=== PATIENT | female | born 1935 | race Caucasian/White ===

== ENCOUNTER 2019-11-22 00:18 | Inpatient (IN) | payer MEDICARE, OTHER ==
[~2019-11-22] VITALS: Ht 162.6 cm; Wt 121.0 kg
[2019-11-22] MEDS ORDERED: ACETAMINOPHEN 325 MG TABLET PO ONE (01:00)
[2019-11-22] MEDS ORDERED: SODIUM CHLORIDE FLUSH 10ML SYR IVF ONE (01:00)
[2019-11-22] MEDS ORDERED: PROCHLORPERAZINE 5 MG/ML, 2ML IVPush ONE (01:00)
[2019-11-22] MEDS ORDERED: PROCHLORPERAZINE 5 MG/ML, 2ML ONE (01:17)
--- NOTE | 2019-11-22 01:20 | NUR ---
BREAK RN: PT MEDICATED PER EMAR. 5 RIGHTS ADDRESSED. PT C/O "FEELING COLD", SHIVERING. TEMP RECHECKED AT 100.9. WILL WAIT FOR COMPAZINE TO TAKE AFFECT FOR VOMITING PRIOR TO ADMINISTRATION OF TYLENOL
--- NOTE | 2019-11-22 01:30 | NUR ---
BREAK RN: URINE SAMPLE OBTAINED. PLACED IN TUBES, LABELED AND SENT TO LAB.
[2019-11-22 01:37] LABS: MEAN CORPUSCULAR HEMOGLOBIN 28.6 pg (27.0-34.8); MEAN CORPUSCULAR HGB CONC 33.2 g/dL (32.4-35.8); MEAN CORPUSCULAR VOLUME 86.2 fL (80-100); PLATELET COUNT 240 x10^3/uL (130-400); RED BLOOD COUNT 5.02 x10^6/uL (3.82-5.3); RED CELL DISTRIBUTION WIDTH 14.3 % (9.6-15.2)
[2019-11-22 01:38] LABS: ALANINE AMINOTRANSFERASE 24 U/L (12-78); ALBUMIN 3.4 g/dL (3.4-5.0); ANION GAP 7 mmol/L (5-15); CALCIUM 9.9 mg/dL (8.5-10.1); CHLORIDE 107 mmol/L (98-107)
--- NOTE | 2019-11-22 01:39 | NUR ---
BREAK RN: REPORT TO PRIMARY RNLOIS
[2019-11-22 01:40] LABS: ALKALINE PHOSPHATASE 111 U/L (45-117); BILIRUBIN,TOTAL 0.6 mg/dL (0.2-1.0); CREATININE 1.25 mg/dL (0.55-1.02); TOTAL PROTEIN 8.1 g/dL (6.4-8.2)
[2019-11-22 01:42] LABS: MICROSCOPIC NOT IND
[2019-11-22 01:44] LABS: CULTURE INDICATED? NO
[2019-11-22] MEDS ORDERED: ACETAMINOPHEN 325 MG TABLET ONE (01:44)
[2019-11-22] MEDS ORDERED: ENALAPRILAT 1.25 MG/ML, 1ML ONE (01:58)
[2019-11-22] MEDS ORDERED: ENALAPRILAT 1.25 MG/ML, 2ML IV ONE (02:00)
[2019-11-22 02:09] LABS: BASOPHILS # (AUTO) 0.01 x10^3/uL (0-0.1); BASOPHILS % (AUTO) 0 % (0-1); EOSINOPHILS # (AUTO) 0.02 x10^3/uL (0-0.4); EOSINOPHILS % (AUTO) 0 % (1-7); LYMPHOCYTES # (AUTO) 1.07 x10^3/uL (1-3.4); LYMPHOCYTES % (AUTO) 5 % (22-44); MD SCAN; MONOCYTES # (AUTO) 0.74 x10^3/uL (0.2-0.8); MONOCYTES % (AUTO) 4 % (2-9); NEUTROPHILS # (AUTO) 18.02 x10^3/uL (1.8-6.8); NEUTROPHILS % (AUTO) 91 % (42-75)
[2019-11-22] MEDS ORDERED: LABETALOL 5MG/ML, 20ML IVPush ONE (02:30)
[2019-11-22 02:39] LABS: TROPONIN I < 0.015 ng/mL (0.000-0.045)
[2019-11-22] MEDS ORDERED: HYDROmorphone 1 MG/ML, 1ML INJ IV ONE (03:00)
[2019-11-22] MEDS ORDERED: HYDROmorphone 1 MG/ML, 1ML INJ ONE (03:05)
--- NOTE | 2019-11-22 03:08 | NUR ---
PT TO CT AT THIS TIME
[2019-11-22] MEDS ORDERED: LABETALOL 5MG/ML, 20ML ONE ×2 (03:22→08:34)
[2019-11-22] MEDS ORDERED: CEFTRIAXONE PMX 1GM/50ML 50 ML ONE (03:22)
[2019-11-22] MEDS ORDERED: OMNIPAQUE 350 MG/ML, 100ML BOTTLE ONE (03:23)
[2019-11-22] MEDS ORDERED: CEFTRIAXONE PMX 1GM/50ML 50 ML IV ONE (03:30)
[2019-11-22] MEDS ORDERED: SODIUM CHLORIDE 0.9% 1,000ML IVBOLUS ONE (03:30)
[2019-11-22] MEDS ORDERED: AZITHROMYCIN 500 MG in SODIUM CHLORIDE 0.9% 250 ML IV ONE (03:30)
[2019-11-22] MEDS ORDERED: ACETAMINOPHEN 325 MG TABLET PO PRN (04:30)
[2019-11-22] MEDS ORDERED: ENOXAPARIN 40 MG/0.4 ML SQ SCH (04:30)
[2019-11-22] MEDS ORDERED: ONDANSETRON 2MG/ML, 2ML IVPush PRN (04:30)
[2019-11-22] MEDS ORDERED: GUAIFENESIN/DM 200-20MG, 10ML UDC PO PRN (04:30)
[2019-11-22] MEDS ORDERED: ASA/APAP/ CAFFEINE TABLET PO PRN (04:30)
[2019-11-22] MEDS ORDERED: TRAZODONE 50MG TABLET PO PRN (04:30)
[2019-11-22] MEDS ORDERED: POTASSIUM CHLORIDE 20 MEQ in LACTATED RINGERS 1,000 ML IV ONE (04:30)
[2019-11-22] MEDS ORDERED: POLYETHYLENE GLYCOL 17 GM PACKET PO PRN (04:30)
[2019-11-22] MEDS ORDERED: BUTALB/APAP/CAFFEINE 50MG/325MG/40MG PO PRN (04:30)
--- NOTE | 2019-11-22 04:55 | NUR ---
PT PROVIDED HOSPITAL BED
[2019-11-22] MEDS ORDERED: ENOXAPARIN 40 MG/0.4 ML ONE (04:58)
[2019-11-22] MEDS ORDERED: NYSTATIN TOPICAL POWDER 15GM TP PRN (05:00)
--- NOTE | 2019-11-22 05:28 | NUR ---
NYSTATIN POWDER APPLIED TO LEFT PANNIS FOLD DUE TO APPARENT FUNGAL SKIN INFECTION. PT STATES AN ALLERGY TO HEPARINS, ENOXAPRIN NOT ADMINISTERED. MD BOWLESYEOctavia NOTIFIED. HE SAYS TO USE SCD'S INSTEAD
[2019-11-22] MEDS ORDERED: HYDR-3276 PO (05:40)
[2019-11-22] MEDS ORDERED: LISI-170 PO (05:40)
--- NOTE | 2019-11-22 05:46 | NUR ---
CARDIAC MEAL TRY ORDERED
[2019-11-22] MEDS ORDERED: ONDANSETRON 2MG/ML, 2ML ONE (06:06)
--- NOTE | 2019-11-22 06:54 | NUR ---
BOTH IVS INFILTRATED. MICHAEL, RN AT [facility] WORKING TO RE-ESTABLISH IV ACCESS
--- NOTE | 2019-11-22 07:07 | NUR ---
REPORT RECEIVED FROM CAROLA EPSTEIN. BREAKFAST TRAY ORDERED.
[2019-11-22] MEDS ORDERED: hydrALAzine 20 MG/ML, 1ML ONE (07:08)
[2019-11-22] MEDS: hydrALAzine 20 MG/ML, 1ML IVPush PRN (07:09)
[2019-11-22] MEDS ORDERED: ONDANSETRON ODT 4 MG ONE (07:38)
[2019-11-22] MEDS: ONDANSETRON ODT 4 MG PO PRN (07:39)
--- NOTE | 2019-11-22 07:40 | NUR ---
PT BP NOW 190/74, STILL TACHYCARDIC. PT STATES SHE IS NAUSEAS. FURTHER MEDICATED AT THIS TIME. ATTEMPTED TO CALL X1, NO ANSWER. WILL CALL AGAIN FOR FURTHER ORDERS. PT STATES SHE IS THIRSTY- PROVIDED WITH ICE CHIPS AT THIS TIME AND EXPLAINED THAT WHILE SHE IS NAUSEAS PO INTAKE NEEDS TO BE SLOW. PT STATES SHE UNDERSTANDS. REMAINS IN USE WITH PUREWICK. RESTING ON GURNEY. RESTLESS AND MOANING. WILL CONTINUE TO MONITOR.
[2019-11-22] MEDS ORDERED: PROMETHAZINE 25 MG/ML, 1ML ONE (08:05)
--- NOTE | 2019-11-22 08:09 | NUR ---
PER [facility], OKAY TO GIVE 12.5MG PHENERGAN IM. PT MEDICATED PER EMAR AT THIS TIME. RESTING ON GURNEY. RESTLESS WITH OCASSIONAL SHOUTS FOR HELP. REPOSITIONED. CONTINUES TO CONSUME ICE CHIPS- THIS RN ADVISED PT TO GO SLOWLY. BP NOW 197/76. DENIES FURTHER NEEDS.
[2019-11-22] MEDS ORDERED: PROMETHAZINE 25 MG/ML, 1ML IM PRN (08:30)
[2019-11-22] MEDS: LABETALOL 5MG/ML, 20ML IVPush PRN (08:38)
--- NOTE | 2019-11-22 08:41 | NUR ---
PT CONTINUES TO BE HYPERTENSIVE. MEDICATED WITH LABETOLOL AT THIS TIME. RESTING ON GURNEY. RESTLESS. HELPED TO REPOSITION AGAIN. DENIES FURTHER NEEDS. CONNECTED TO MONITOR. CONTINUALLY FOUND WITH OXYGEN OFF. OXYGEN ON NOW. WILL CONTINUE TO MONITOR.
[2019-11-22] MEDS ORDERED: AMLODIPINE 5 MG TABLET PO SCH (09:00)
--- NOTE | 2019-11-22 09:18 | NUR ---
PT REMAINS RESTLESS IN BED, CALLING OUT FOR HELP. HELPED TO REPOSITION ON GURNEY. VSS, NO LONGER HYPERTENSIVE. RESTING ON GURNEY. CONNECTED TO MONITOR. STATES SHE REMAINS NAUSEAS. DENIES FURTHER NEEDS.
--- NOTE | 2019-11-22 09:39 | NUR ---
PT NO LONGER WITH EMESIS. PROVIDED WITH MORE ICE CHIPS. RESTING ON GURNEY APPEARING MORE COMFORTABLE. VSS. DENIES FURTHER NEEDS.
--- NOTE | 2019-11-22 09:50 | NUR ---
TASK RN: PT RESTING IN BED. NADN. GRIER.
--- NOTE | 2019-11-22 10:18 | NUR ---
PT CALLING OUT FOR HELP AGAIN- THIS RN HELPED PT REPOSITION. THIS RN FOUND ICE SPILLED IN BED. PT NOTED TO BE SLIGHTLY DROWSY. WATER REMOVED AND CLEANED UP. PT NOW RESTING ON GURNEY. NADN. VSS. DENIES FURTHER NEEDS.
--- NOTE | 2019-11-22 10:55 | NUR ---
PT CONTINUES TO REMAIN NAUSEAS AND IS HAVING CONSIDERABLE AMOUNT OF BACK PAIN, UNABLE TO GET COMFORTABLE ON HOSPTIAL BED. MD CALLED, NO ANSWER X1. WILL ATTEMPT TO CALL AGAIN.
--- NOTE | 2019-11-22 11:05 | NUR ---
MD CALLED AGAIN, MESSAGE LEFT. PT HELPED TO REPOSITION. VSS
--- NOTE | 2019-11-22 11:33 | NUR ---
TASK RN: Iam CRANDALL AT BEDSIDE.
[2019-11-22] MEDS ORDERED: HYDROcodone/APAP 5/325 TABLET ONE (11:47)
[2019-11-22] MEDS: HYDROcodone/APAP 5/325 TABLET PO PRN ×2 (11:48→18:45)
--- NOTE | 2019-11-22 12:10 | NUR ---
RADIOLOGY AT BEDSIDE NOW.
--- NOTE | 2019-11-22 12:24 | NUR ---
PT REPOSITIONED, NEW PUREWICK PLACED. RESTING ON GURNEY. CONNECTED TO MONITOR. DENIES FURTHER NEEDS. US AT BEDSIDE.
[2019-11-22 12:33] LABS: HCT (SEDRATE) 40.4 % (34.6-47.8)
--- NOTE | 2019-11-22 13:40 | NUR ---
PT'S FAMILY AT BEDSIDE.
--- NOTE | 2019-11-22 14:15 | NUR ---
REPORT GIVEN TO CAROLA MARMOLEJO.
[2019-11-22 15:29] VITALS: BP 160/72
[2019-11-22] MEDS: CEFTRIAXONE PMX 1GM/50ML 50 ML IV SCH (16:59)
[2019-11-22 20:01] VITALS: BP 142/83
[2019-11-22 22:11] LABS: RAPID INFLUENZA A Negative (Negative); RAPID INFLUENZA B Negative (Negative)
[2019-11-23 00:35] VITALS: BP 174/79
[2019-11-23] MEDS: hydrALAzine 20 MG/ML, 1ML IVPush PRN (00:53)
[2019-11-23 01:29] VITALS: BP 153/67
[2019-11-23] MEDS: CEFTRIAXONE PMX 1GM/50ML 50 ML IV SCH ×2 (04:22→09:19)
[2019-11-23] MEDS ORDERED: AZITHROMYCIN 500 MG in SODIUM CHLORIDE 0.9% 250 ML IV SCH (05:00)
[2019-11-23] MEDS: HYDROcodone/APAP 5/325 TABLET PO PRN ×3 (05:23→23:36)
[2019-11-23 06:02] LABS: BASOPHILS # (AUTO) 0.05 x10^3/uL (0-0.1); BASOPHILS % (AUTO) 0 % (0-1); EOSINOPHILS # (AUTO) 0.15 x10^3/uL (0-0.4); EOSINOPHILS % (AUTO) 1 % (1-7); LYMPHOCYTES # (AUTO) 1.22 x10^3/uL (1-3.4); LYMPHOCYTES % (AUTO) 8 % (22-44); MD NO; MEAN CORPUSCULAR HEMOGLOBIN 28.1 pg (27.0-34.8); MEAN CORPUSCULAR HGB CONC 32.7 g/dL (32.4-35.8); MEAN CORPUSCULAR VOLUME 86.1 fL (80-100); MEAN PLATELET VOLUME 9.2 fL (7.4-10.4); MONOCYTES # (AUTO) 0.76 x10^3/uL (0.2-0.8); MONOCYTES % (AUTO) 5 % (2-9); NEUTROPHILS # (AUTO) 12.64 x10^3/uL (1.8-6.8); NEUTROPHILS % (AUTO) 85 % (42-75); PLATELET COUNT 214 x10^3/uL (130-400); RED BLOOD COUNT 4.35 x10^6/uL (3.82-5.3); RED CELL DISTRIBUTION WIDTH 15.1 % (9.6-15.2)
[2019-11-23 06:05] LABS: ALBUMIN 2.6 g/dL (3.4-5.0); ANION GAP 6 mmol/L (5-15); CALCIUM 9.3 mg/dL (8.5-10.1); CHLORIDE 111 mmol/L (98-107)
[2019-11-23 06:09] LABS: ALANINE AMINOTRANSFERASE 18 U/L (12-78); ALKALINE PHOSPHATASE 77 U/L (45-117); BILIRUBIN,TOTAL 0.3 mg/dL (0.2-1.0); CREATININE 1.25 mg/dL (0.55-1.02); TOTAL PROTEIN 6.7 g/dL (6.4-8.2)
[2019-11-23 09:12] VITALS: BP 151/71
[2019-11-23] MEDS: LISINOPRIL 20 MG TABLET PO SCH (09:18)
[2019-11-23] MEDS: HYDROCHLOROTHIAZIDE 12.5 MG CAPSULE PO SCH (09:18)
[2019-11-23] MEDS: POTASSIUM CHLORIDE 20 MEQ TAB.ER.PRT PO SCH ×2 (09:18→16:46)
[2019-11-23] MEDS: AMLODIPINE 10 MG TAB PO SCH (09:19)
[2019-11-23] MEDS ORDERED: SODIUM CHLORIDE 0.9% 1,000 ML IV SCH (15:00)
[2019-11-23 15:18] VITALS: BP 178/79
[2019-11-23] MEDS: LABETALOL 5MG/ML, 20ML IVPush PRN (16:51)
[2019-11-23 20:19] VITALS: BP 165/67
[2019-11-24 01:42] VITALS: BP 181/65
[2019-11-24 03:03] VITALS: BP 169/79
[2019-11-24 05:30] LABS: MEAN CORPUSCULAR HEMOGLOBIN 28.2 pg (27.0-34.8); MEAN CORPUSCULAR HGB CONC 32.5 g/dL (32.4-35.8); MEAN CORPUSCULAR VOLUME 86.6 fL (80-100); MEAN PLATELET VOLUME 9.6 fL (7.4-10.4); PLATELET COUNT 246 x10^3/uL (130-400); RED CELL DISTRIBUTION WIDTH 15.1 % (9.6-15.2)
[2019-11-24] MEDS: ONDANSETRON ODT 4 MG PO PRN (05:31)
[2019-11-24 05:41] LABS: ANION GAP 8 mmol/L (5-15); CALCIUM 9.5 mg/dL (8.5-10.1); CHLORIDE 110 mmol/L (98-107)
[2019-11-24 05:42] LABS: CREATININE 1.15 mg/dL (0.55-1.02)
[2019-11-24 06:16] LABS: BASOPHILS # (AUTO) 0.03 x10^3/uL (0-0.1); BASOPHILS % (AUTO) 0 % (0-1); EOSINOPHILS # (AUTO) 0.37 x10^3/uL (0-0.4); EOSINOPHILS % (AUTO) 3 % (1-7); LYMPHOCYTES # (AUTO) 1.39 x10^3/uL (1-3.4); LYMPHOCYTES % (AUTO) 9 % (22-44); MD SCAN; MONOCYTES # (AUTO) 0.86 x10^3/uL (0.2-0.8); MONOCYTES % (AUTO) 6 % (2-9); NEUTROPHILS # (AUTO) 12.08 x10^3/uL (1.8-6.8); NEUTROPHILS % (AUTO) 82 % (42-75)
[2019-11-24] MEDS: HYDROcodone/APAP 5/325 TABLET PO PRN ×3 (06:48→22:57)
[2019-11-24 08:22] VITALS: BP 175/78
[2019-11-24] MEDS: LISINOPRIL 20 MG TABLET PO SCH (09:34)
[2019-11-24] MEDS: POTASSIUM CHLORIDE 20 MEQ TAB.ER.PRT PO SCH ×2 (09:34→16:51)
[2019-11-24] MEDS: CARVEDILOL 6.25 MG TABLET PO SCH ×2 (09:34→16:50)
[2019-11-24] MEDS: AMLODIPINE 10 MG TAB PO SCH (09:34)
[2019-11-24] MEDS: CEFTRIAXONE PMX 1GM/50ML 50 ML IV SCH (09:35)
[2019-11-24] MEDS: HYDROCHLOROTHIAZIDE 12.5 MG CAPSULE PO SCH (09:35)
[2019-11-24] MEDS: GABAPENTIN 300 MG CAPSULE PO PRN ×2 (09:47→20:10)
[2019-11-24] MEDS ORDERED: AA8/1CAP3 PO (12:19)
[2019-11-24] MEDS ORDERED: GABA300C10 PO (12:22)
[2019-11-24] MEDS ORDERED: OXYB5TAB2 PO (12:23)
[2019-11-24] MEDS ORDERED: ONDA4TAB7 PO (12:24)
[2019-11-24] MEDS ORDERED: HYDR-3245 PO (12:24)
[2019-11-24] MEDS ORDERED: HYDR-826 PO (12:27)
[2019-11-24] MEDS ORDERED: PANT20TA3 PO (12:28)
[2019-11-24] MEDS ORDERED: LISI1TAB19 PO (12:29)
[2019-11-24] MEDS ORDERED: METO-282 PO (12:31)
[2019-11-24 12:58] LABS: HCT (SEDRATE) 43.6 % (34.6-47.8)
[2019-11-24 14:03] VITALS: BP 169/73
[2019-11-24] MEDS: CARVEDILOL 12.5 MG TABLET PO SCH (18:00)
[2019-11-24] MEDS ORDERED: VANCOMYCIN PER PHARMACY MC PRN (18:00)
[2019-11-24] MEDS ORDERED: hydrOXyzine 10 MG/5 ML ORAL SOL PO PRN (18:00)
[2019-11-24 19:56] VITALS: BP 189/72
[2019-11-24] MEDS ORDERED: CARVEDILOL 6.25 MG TABLET PO ONE (20:00)
[2019-11-24 22:33] VITALS: BP 153/79
[2019-11-25 00:27] VITALS: BP 166/72
[2019-11-25] MEDS: CARVEDILOL 12.5 MG TABLET PO SCH ×2 (05:43→17:08)
[2019-11-25] MEDS: GABAPENTIN 300 MG CAPSULE PO PRN ×2 (05:46→18:22)
[2019-11-25 07:18] LABS: ANION GAP 7 mmol/L (5-15); CHLORIDE 111 mmol/L (98-107)
[2019-11-25 07:28] LABS: MEAN CORPUSCULAR HEMOGLOBIN 28.1 pg (27.0-34.8); MEAN CORPUSCULAR HGB CONC 32.7 g/dL (32.4-35.8); MEAN PLATELET VOLUME 9.3 fL (7.4-10.4); PLATELET COUNT 286 x10^3/uL (130-400); RED BLOOD COUNT 4.39 x10^6/uL (3.82-5.3); RED CELL DISTRIBUTION WIDTH 15.1 % (9.6-15.2)
[2019-11-25 07:33] LABS: CREATININE 1.16 mg/dL (0.55-1.02)
[2019-11-25] MEDS: AMLODIPINE 10 MG TAB PO SCH (07:57)
[2019-11-25] MEDS: HYDROCHLOROTHIAZIDE 12.5 MG CAPSULE PO SCH (07:57)
[2019-11-25] MEDS: LISINOPRIL 20 MG TABLET PO SCH (07:58)
[2019-11-25] MEDS: POTASSIUM CHLORIDE 20 MEQ TAB.ER.PRT PO SCH ×2 (07:58→17:08)
[2019-11-25] MEDS: HYDROcodone/APAP 5/325 TABLET PO PRN ×3 (07:58→23:11)
[2019-11-25 08:16] VITALS: BP 166/77
[2019-11-25 08:37] LABS: BASOPHILS # (AUTO) 0.05 x10^3/uL (0-0.1); BASOPHILS % (AUTO) 0 % (0-1); EOSINOPHILS # (AUTO) 0.36 x10^3/uL (0-0.4); EOSINOPHILS % (AUTO) 3 % (1-7); LYMPHOCYTES # (AUTO) 1.94 x10^3/uL (1-3.4); LYMPHOCYTES % (AUTO) 16 % (22-44); MD SCAN; MONOCYTES # (AUTO) 0.94 x10^3/uL (0.2-0.8); MONOCYTES % (AUTO) 8 % (2-9); NEUTROPHILS # (AUTO) 8.52 x10^3/uL (1.8-6.8); NEUTROPHILS % (AUTO) 72 % (42-75)
[2019-11-25] MEDS ORDERED: PHARMACOKINETIC MONITORING MC PRN (11:00)
[2019-11-25] MEDS: VANCOMYCIN 1,600 MG in SODIUM CHLORIDE 0.9% 250 ML IV SCH (12:14)
[2019-11-25 13:59] VITALS: BP 140/67
[2019-11-25 17:00] VITALS: BP 138/85
[2019-11-25 20:20] VITALS: BP 170/78
[2019-11-25 22:02] VITALS: BP 158/66
[2019-11-26 00:19] VITALS: BP 167/78
[2019-11-26] MEDS: CARVEDILOL 12.5 MG TABLET PO SCH (05:32)
[2019-11-26 06:51] LABS: BASOPHILS # (AUTO) 0.03 x10^3/uL (0-0.1); BASOPHILS % (AUTO) 0 % (0-1); EOSINOPHILS # (AUTO) 0.35 x10^3/uL (0-0.4); EOSINOPHILS % (AUTO) 3 % (1-7); HCT (SEDRATE) 39.5 % (34.6-47.8); LYMPHOCYTES # (AUTO) 1.81 x10^3/uL (1-3.4); LYMPHOCYTES % (AUTO) 14 % (22-44); MD NO; MEAN CORPUSCULAR HEMOGLOBIN 28.2 pg (27.0-34.8); MEAN CORPUSCULAR HGB CONC 32.7 g/dL (32.4-35.8); MEAN CORPUSCULAR VOLUME 86.3 fL (80-100); MEAN PLATELET VOLUME 8.9 fL (7.4-10.4); MONOCYTES # (AUTO) 1.02 x10^3/uL (0.2-0.8); MONOCYTES % (AUTO) 8 % (2-9); NEUTROPHILS # (AUTO) 9.82 x10^3/uL (1.8-6.8); NEUTROPHILS % (AUTO) 75 % (42-75); PLATELET COUNT 325 x10^3/uL (130-400); RED BLOOD COUNT 4.53 x10^6/uL (3.82-5.3)
[2019-11-26 07:00] VITALS: BP 189/74
[2019-11-26 07:02] LABS: ANION GAP 5 mmol/L (5-15); CALCIUM 10.2 mg/dL (8.5-10.1); CHLORIDE 110 mmol/L (98-107); CREATININE 1.05 mg/dL (0.55-1.02)
[2019-11-26] MEDS: HYDROCHLOROTHIAZIDE 12.5 MG CAPSULE PO SCH (07:53)
[2019-11-26] MEDS: GABAPENTIN 300 MG CAPSULE PO PRN ×2 (07:53→23:10)
[2019-11-26] MEDS: LISINOPRIL 20 MG TABLET PO SCH (07:54)
[2019-11-26] MEDS: AMLODIPINE 10 MG TAB PO SCH (07:54)
[2019-11-26] MEDS: POTASSIUM CHLORIDE 20 MEQ TAB.ER.PRT PO SCH ×2 (07:54→17:08)
[2019-11-26] MEDS: HYDROcodone/APAP 5/325 TABLET PO PRN ×3 (07:54→21:12)
[2019-11-26 09:30] VITALS: BP 171/70
[2019-11-26 10:33] VITALS: BP 159/69
[2019-11-26] MEDS: VANCOMYCIN 1,600 MG in SODIUM CHLORIDE 0.9% 250 ML IV SCH (13:50)
[2019-11-26 14:20] VITALS: BP 173/73
[2019-11-26] MEDS: CARVEDILOL 25 MG TABLET PO SCH (17:09)
[2019-11-26 19:09] VITALS: BP 143/94
[2019-11-27 00:53] VITALS: BP 171/86
[2019-11-27 02:42] VITALS: BP 164/70
[2019-11-27] MEDS: HYDROcodone/APAP 5/325 TABLET PO PRN ×2 (04:05→11:55)
[2019-11-27] MEDS: CARVEDILOL 25 MG TABLET PO SCH ×2 (05:19→16:14)
[2019-11-27 05:40] LABS: HCT (SEDRATE) 37.3 % (34.6-47.8)
[2019-11-27 05:43] LABS: MEAN CORPUSCULAR HGB CONC 32.6 g/dL (32.4-35.8); MEAN CORPUSCULAR VOLUME 85.8 fL (80-100); MEAN PLATELET VOLUME 9.1 fL (7.4-10.4); PLATELET COUNT 330 x10^3/uL (130-400); RED BLOOD COUNT 4.38 x10^6/uL (3.82-5.3); RED CELL DISTRIBUTION WIDTH 14.9 % (9.6-15.2)
[2019-11-27 05:50] LABS: ANION GAP 6 mmol/L (5-15); CALCIUM 9.8 mg/dL (8.5-10.1); CHLORIDE 108 mmol/L (98-107)
[2019-11-27 06:02] LABS: CREATININE 1.05 mg/dL (0.55-1.02)
[2019-11-27 06:08] LABS: BASOPHILS # (AUTO) 0.06 x10^3/uL (0-0.1); BASOPHILS % (AUTO) 0 % (0-1); EOSINOPHILS # (AUTO) 0.44 x10^3/uL (0-0.4); EOSINOPHILS % (AUTO) 3 % (1-7); LYMPHOCYTES % (AUTO) 14 % (22-44); MD SCAN; MONOCYTES # (AUTO) 0.99 x10^3/uL (0.2-0.8); MONOCYTES % (AUTO) 7 % (2-9); NEUTROPHILS # (AUTO) 11.12 x10^3/uL (1.8-6.8); NEUTROPHILS % (AUTO) 76 % (42-75)
[2019-11-27 07:33] VITALS: BP 179/81
[2019-11-27] MEDS ORDERED: SULF1TAB24 PO (08:36)
[2019-11-27] MEDS ORDERED: AMLO10TA8 PO (08:36)
[2019-11-27] MEDS ORDERED: CEPH-376 PO (08:36)
[2019-11-27] MEDS: AMLODIPINE 10 MG TAB PO SCH (10:09)
[2019-11-27] MEDS: LISINOPRIL 20 MG TABLET PO SCH (10:09)
[2019-11-27] MEDS: HYDROCHLOROTHIAZIDE 12.5 MG CAPSULE PO SCH (10:09)
[2019-11-27] MEDS: POTASSIUM CHLORIDE 20 MEQ TAB.ER.PRT PO SCH ×2 (10:09→16:14)
[2019-11-27] MEDS: VANCOMYCIN 1,600 MG in SODIUM CHLORIDE 0.9% 250 ML IV SCH (13:25)
[2019-11-27] MEDS: GABAPENTIN 300 MG CAPSULE PO PRN (16:13)
== END 2019-11-27 18:12 | disposition home health service (06) | DRG 871 ==
LOC: ED 03:53 → EDIP 04:15 → 4EST 15:21 → 4NE 11-25 13:55 → 3N 11-26 16:45
PROVIDERS: ADMIT Family Medicine; ATTEND Family Medicine
PROC: 0T9B70Z Drainage of Bladder with Drainage Device, Via Natural or Artificial Opening (ICD-10-PCS; principal; 2019-11-22)
DX: A41.9 Sepsis, unspecified organism (principal); J18.9 Pneumonia, unspecified organism; N17.0 Acute kidney failure with tubular necrosis; J96.01 Acute respiratory failure with hypoxia; Z68.42 Body mass index [BMI] 45.0-49.9, adult; L03.115 Cellulitis of right lower limb; L03.031 Cellulitis of right toe; E66.01 Morbid (severe) obesity due to excess calories; F41.9 Anxiety disorder, unspecified; G89.29 Other chronic pain; I12.9 Hypertensive chronic kidney disease with stage 1 through stage 4 chronic kidney disease, or unspecified chronic kidney disease; I70.0 Atherosclerosis of aorta; N18.2 Chronic kidney disease, stage 2 (mild); W18.30XA Fall on same level, unspecified, initial encounter; M54.9 Dorsalgia, unspecified; R73.9 Hyperglycemia, unspecified; Y93.89 Activity, other specified; Y92.89 Other specified places as the place of occurrence of the external cause; Y99.8 Other external cause status
CPT/HCPCS: 36415; 71045; 71275; 74177; 80048; 80053; 81003; 82962; 83605; 83735; 84100; 84145; 84484; 85025; 85651; 86140; 87040; 87081; 87400; 93005; 93306; 96365; 96367; 96375; G0378; J0456; J0696; J1170; J2405; J2550; J3370; J3480; Q0162; Q9967; J0360; J0780; J7030; J7050; J7120